=== PATIENT | male | born 1955 | race Two or more races ===

== ENCOUNTER 2022-01-23 12:53 | Emergency (ER) | payer OTHER, BC ==
[2022-01-23 13:09] VITALS: BP 135/94; PULSE 93; TEMP 97.8; BMI 31.5
[2022-01-23] MEDS ORDERED: SILVER SULFADIAZINE 1% TOP CREAM 50 GM JAR TP ONE ×2 (14:27→14:30)
[2022-01-23] MEDS ORDERED: DIPHTH,PERTUSS(ACELL),TET 0.5 ML DISP.SYRIN IM ONE ×2 (14:47→14:49)
== END 2022-01-23 15:14 | disposition home or self-care (01) ==
LOC: JER 12:53
PROC: 3E0234Z Introduction of Serum, Toxoid and Vaccine into Muscle, Percutaneous Approach (ICD-10-PCS; principal; 2022-01-23)
DX: T21.22XA Burn of second degree of abdominal wall, initial encounter (principal)
CPT/HCPCS: 90471; 90715; 99283-25

== ENCOUNTER 2022-01-25 14:02 | Emergency (ER) | payer OTHER, BC ==
[2022-01-25 14:23] VITALS: BP 139/90; PULSE 96; TEMP 97.9; BMI 30.7
== END 2022-01-25 16:45 | disposition home or self-care (01) ==
LOC: JER 14:02
DX: T21.22XA Burn of second degree of abdominal wall, initial encounter (principal); L03.818 Cellulitis of other sites
CPT/HCPCS: 99283-25

== ENCOUNTER 2022-02-24 03:58 | Day surgery (SDC) | payer OTHER, BC ==
[2022-02-20 12:21] VITALS: BMI 30.7
[2022-02-24 08:59] VITALS: RESP 20
[2022-02-24] MEDS ORDERED: MIDAZOLAM HCL 2 MG/2 ML SINGLE DOSE VIAL ONE (11:41)
[2022-02-24 12:37] VITALS: TEMP 98.2
[2022-02-24 13:19] VITALS: BP 115/82; PULSE 74
== END 2022-02-24 13:20 | disposition home or self-care (01) ==
LOC: JASU-SURG 03:58
PROVIDERS: ATTEND Urology
PROC: 0TF4XZZ Fragmentation in Left Kidney Pelvis, External Approach (ICD-10-PCS; principal; 2022-02-24 11:00)
DX: N20.0 Calculus of kidney (principal)